=== PATIENT | female | born 1985 | race African-American/Black ===

== ENCOUNTER 2019-01-26 18:19 | Inpatient (IN) ==
[2019-01-26 18:58] LABS: Basophils % 0.2 % (0.0-0.8); Eosinophils # 0.1 10*3/uL (0.0-0.87); Eosinophils % 0.7 % (0.00-10.9); Hematocrit 31.8 VOL% (35.7-47.0); Hemoglobin 10.1 GM/DL (12.0-16.0); Immature Granulocytes % 0.5 %; Immature Granulocytes Absolute 0.05 #; Lymphocytes # 1.5 10*3/uL (1.4-4.0); Lymphocytes % 14.3 % (21.3-54.2); Mean Corpuscular HGB Conc 31.8 GM/DL (32-36); Mean Corpuscular Volume 81.3 FL (87-102); Mean Platelet Volume 12.1 FL (9.6-12.0); Monocytes % 11.4 % (1.7-12.7); Neutrophils % 72.9 % (38.7-73.9); Platelet Count 248 T/CUMM (130-400); Red Blood Count 3.91 MC/CUMM (3.8-5.5); Red Cell Distribution Width 13.2 % (9.3-17.3); White Blood Count 10.4 T/CUMM (4-12)
[2019-01-26 19:15] LABS: Albumin 3.9 G/DL (3.4-5.0); Bilirubin,Total 0.6 MG/DL (0.2-1.0); Calcium 9.5 MG/DL (8.5-10.1); Osmolality,Calculated 283.8 MOS/KG (273-304); Total Protein 9.4 G/DL (6.4-8.3)
[2019-01-26] MEDS ORDERED: MORPHINE 4 MG/1 ML VIAL IM STA (19:26)
[2019-01-26] MEDS ORDERED: cefTRIAXone 1,000 MG in SODIUM CHLORIDE 0.9% 100 ML IV STA (19:41)
[2019-01-26] MEDS ORDERED: CIPROFLOXACIN/DEXAMETHASONE OTIC SUSP 7.5 ML BOTTLE BOTH EARS STA (19:41)
[2019-01-26] MEDS ORDERED: MUPIROCIN 2% OINT 22 GM TUBE TOP STA (19:52)
[2019-01-26] MEDS ORDERED: CIPROFLOXACIN INJ 400 MG in PREMIX 1 EACH IV STA (19:52)
[2019-01-26] MEDS ORDERED: HYDROmorphone 2 MG/1 ML VIAL IV STA (20:01)
[2019-01-26] MEDS ORDERED: SODIUM CHLORIDE 0.9% 1,000 ML IV STA (20:02)
[2019-01-26] MEDS ORDERED: GLUCAGON 1 MG VIAL IM PRN (20:28)
[2019-01-26] MEDS ORDERED: DEXTROSE 50% 25 GM/50 ML VIAL IV PRN (20:28)
[2019-01-26] MEDS ORDERED: ACETAMINOPHEN 500 MG TABLET PO PRN (20:28)
[2019-01-26] MEDS ORDERED: ONDANSETRON 4 MG/2 ML VIAL IV PRN (20:28)
[2019-01-26] MEDS ORDERED: HYDROmorphone 2 MG/1 ML VIAL IV SCH (20:30)
[2019-01-26] MEDS ORDERED: LACTATED RINGERS 1,000 ML IV SCH (20:30)
[2019-01-26] MEDS ORDERED: INSULIN LISPRO 100 UNIT/ML SUBCUT SCH (21:00)
[2019-01-27] MEDS: hydrALAZINE 20 MG/1 ML VIAL IV PRN ×2 (00:17→13:44)
[2019-01-27] MEDS ORDERED: HYDROmorphone 2 MG/1 ML VIAL IV ONE (03:16)
[2019-01-27 05:27] LABS: Basophils % 0.1 % (0.0-0.8); Eosinophils % 0.4 % (0.00-10.9); Hematocrit 28.3 VOL% (35.7-47.0); Hemoglobin 9.2 GM/DL (12.0-16.0); Immature Granulocytes % 0.4 %; Immature Granulocytes Absolute 0.04 #; Lymphocytes # 1.1 10*3/uL (1.4-4.0); Mean Corpuscular HGB Conc 32.5 GM/DL (32-36); Mean Corpuscular Volume 81.1 FL (87-102); Mean Platelet Volume 12.5 FL (9.6-12.0); Monocytes % 11.3 % (1.7-12.7); Neutrophils % 76.8 % (38.7-73.9); Platelet Count 238 T/CUMM (130-400); Red Blood Count 3.49 MC/CUMM (3.8-5.5); Red Cell Distribution Width 13.1 % (9.3-17.3); White Blood Count 10.4 T/CUMM (4-12)
[2019-01-27] MEDS: CIPROFLOXACIN INJ 400 MG in PREMIX 1 EACH IV SCH ×2 (09:04→20:56)
[2019-01-27] MEDS: CIPROFLOXACIN/DEXAMETHASONE OTIC SUSP 7.5 ML BOTTLE BOTH EARS SCH ×2 (09:07→20:55)
[2019-01-27] MEDS: MUPIROCIN 2% OINT 22 GM TUBE TOP SCH ×2 (09:08→20:54)
[2019-01-27] MEDS: MORPHINE 4 MG/1 ML VIAL IV PRN ×3 (10:22→17:58)
[2019-01-27] MEDS ORDERED: CIPROFLOXACIN/DEXAMETHASONE OTIC SUSP 7.5 ML BOTTLE ONE (11:46)
[2019-01-27] MEDS ORDERED: DEXTROSE 50% 25 GM/50 ML VIAL IV PRN (11:56)
[2019-01-27] MEDS ORDERED: GLUCAGON 1 MG VIAL IM PRN (11:56)
[2019-01-27] MEDS ORDERED: PROPOFOL 200 MG/20 ML VIAL IV ONE (13:26)
[2019-01-27] MEDS ORDERED: fentaNYL 100 MCG/2 ML VIAL ONE (13:26)
[2019-01-27] MEDS ORDERED: ONDANSETRON 4 MG/2 ML VIAL ONE (13:26)
[2019-01-27] MEDS ORDERED: MIDAZOLAM 2 MG/2 ML VIAL ONE (13:26)
[2019-01-27] MEDS ORDERED: SEVOFLURANE 1 UNIT/15 MINUTE INH ONE (13:26)
[2019-01-27] MEDS ORDERED: INSULIN LISPRO 100 UNIT/ML SUBCUT SCH (14:00)
[2019-01-27] MEDS: INSULIN LISPRO 100 UNIT/ML SUBCUT SCH (20:53)
[2019-01-28] MEDS: INSULIN LISPRO 100 UNIT/ML SUBCUT SCH ×3 (00:23→09:20)
[2019-01-28 08:20] VITALS: BP 117/82
[2019-01-28] MEDS: CIPROFLOXACIN/DEXAMETHASONE OTIC SUSP 7.5 ML BOTTLE BOTH EARS SCH (09:20)
[2019-01-28] MEDS: MUPIROCIN 2% OINT 22 GM TUBE TOP SCH (09:20)
[2019-01-28] MEDS: CIPROFLOXACIN INJ 400 MG in PREMIX 1 EACH IV SCH (09:21)
== END 2019-01-28 11:47 | disposition home or self-care (01) | DRG 156 ==
LOC: N.ED 18:19 → N.EDINP 20:27 → N.4E 21:19
PROVIDERS: ADMIT Otolaryngology; ATTEND Otolaryngology

== ENCOUNTER 2020-01-31 13:55 | Inpatient (IN) ==
[2020-01-31 17:38] LABS: Basophils % 0.2 % (0.0-0.8); Eosinophils # 0.1 10*3/uL (0.0-0.87); Eosinophils % 0.7 % (0.00-10.9); Hematocrit 27.6 VOL% (35.7-47.0); Hemoglobin 8.3 GM/DL (12.0-16.0); Immature Granulocytes Absolute 0.13 #; Lymphocytes # 1.9 10*3/uL (1.4-4.0); Lymphocytes % 13.8 % (21.3-54.2); Mean Corpuscular HGB Conc 30.1 GM/DL (32-36); Mean Corpuscular Volume 87.3 FL (87-102); Mean Platelet Volume 10.1 FL (9.6-12.0); Monocytes % 8.4 % (1.7-12.7); Neutrophils % 75.9 % (38.7-73.9); Platelet Count 480 T/CUMM (130-400); Red Blood Count 3.16 MC/CUMM (3.8-5.5); Red Cell Distribution Width 12.5 % (9.3-17.3); White Blood Count 13.4 T/CUMM (4-12)
[2020-01-31] MEDS ORDERED: CLINDAMYCIN INJ 600 MG in PREMIX 1 EACH IV STA (17:54)
[2020-01-31 18:00] LABS: Albumin 3.4 G/DL (3.4-5.0); Bilirubin,Total 0.4 MG/DL (0.2-1.0); Calcium 9.8 MG/DL (8.5-10.1); Osmolality,Calculated 269.7 MOS/KG (273-304); Total Protein 10.8 G/DL (6.4-8.3)
[2020-01-31] MEDS ORDERED: INSULIN REGULAR 100 UNIT/ML IV STA (18:20)
[2020-01-31] MEDS ORDERED: DEXTROSE 50% 25 GM/50 ML VIAL IV STA (18:20)
[2020-01-31] MEDS ORDERED: DEXTROSE 50% 25 GM/50 ML SYRINGE IV ONE (18:34)
[2020-01-31] MEDS ORDERED: ONDANSETRON 4 MG/2 ML VIAL IV PRN (19:59)
[2020-01-31] MEDS ORDERED: ZALEPLON 5 MG CAPSULE PO PRN (19:59)
[2020-01-31] MEDS ORDERED: ACETAMINOPHEN 325 MG TABLET PO PRN (19:59)
[2020-01-31] MEDS ORDERED: traMADol 50 MG TABLET PO PRN (19:59)
[2020-01-31] MEDS ORDERED: DEXTROSE 50% 25 GM/50 ML VIAL IV PRN ×2 (19:59→20:02)
[2020-01-31] MEDS ORDERED: GLUCAGON 1 MG VIAL IM PRN ×2 (19:59→20:02)
[2020-01-31] MEDS ORDERED: DOCUSATE SODIUM 100 MG CAPSULE PO PRN (19:59)
[2020-01-31] MEDS ORDERED: SODIUM POLYSTYRENE SULFATE 15 GM/60 ML BOTTLE PO ONE (20:00)
[2020-01-31] MEDS ORDERED: ENOXAPARIN 30 MG/0.3 ML SYRINGE SUBCUT SCH (21:00)
[2020-01-31] MEDS ORDERED: SODIUM ZIRCONIUM CYCLOSILICATE 10 GM PACK PO SCH (21:00)
[2020-01-31] MEDS: hydrALAZINE 10 MG TABLET PO SCH (21:22)
[2020-01-31] MEDS ORDERED: CALCIUM GLUCONATE 2,000 MG in SODIUM CHLORIDE 0.9% 100 ML IV ONE (21:30)
[2020-01-31] MEDS: PIPERACILLIN/TAZOBACTAM 3,375 MG in SODIUM CHLORIDE 0.9% 100 ML IV SCH (21:32)
[2020-01-31] MEDS: SODIUM BICARB INJ 50 MEQ in DEXTROSE 5% NACL 0.45% 1,000 ML IV SCH (21:32)
[2020-01-31] MEDS: INSULIN REGULAR 100 UNIT/ML SUBCUT SCH (21:34)
[2020-02-01] MEDS: CLINDAMYCIN INJ 600 MG in PREMIX 1 EACH IV SCH ×2 (01:56→11:38)
[2020-02-01 04:08] LABS: Basophils % 0.3 % (0.0-0.8); Eosinophils # 0.1 10*3/uL (0.0-0.87); Eosinophils % 0.9 % (0.00-10.9); Hematocrit 23.1 VOL% (35.7-47.0); Immature Granulocytes % 1.1 %; Immature Granulocytes Absolute 0.13 #; Lymphocytes # 2.1 10*3/uL (1.4-4.0); Lymphocytes % 17.6 % (21.3-54.2); Mean Corpuscular HGB Conc 30.3 GM/DL (32-36); Mean Corpuscular Volume 85.6 FL (87-102); Mean Platelet Volume 10.2 FL (9.6-12.0); Monocytes % 9.8 % (1.7-12.7); Neutrophils % 70.3 % (38.7-73.9); Platelet Count 424 T/CUMM (130-400); Red Cell Distribution Width 12.7 % (9.3-17.3)
[2020-02-01 05:15] LABS: Calcium 9.2 MG/DL (8.5-10.1); Osmolality,Calculated 271.7 MOS/KG (273-304); Risk Ratio 6.96; Thyroid Stimulating Hormone 3.05 uIU/ml (0.358-3.74)
[2020-02-01 05:18] LABS: % Iron Saturation 14.7 % (18-50); Ferritin 376.4 ng/ml (8-252)
[2020-02-01 05:19] LABS: Parathyroid Hormone Intact 265.3 PG/ML (18.4-80.1)
[2020-02-01 05:19] LABS: Sedimentation Rate-Westergren 130 MM/HR (0-20)
[2020-02-01 05:34] LABS: Folate 11.3 NG/ML (5.4-24.0); Vitamin B12 734 PG/ML (211-911)
[2020-02-01] MEDS: PIPERACILLIN/TAZOBACTAM 3,375 MG in SODIUM CHLORIDE 0.9% 100 ML IV SCH ×3 (05:34→22:23)
[2020-02-01 06:29] LABS: Hepatitis B Core IgM Quant 0.13 Index; Hepatitis B Surface Ag Quant < 0.10 Index; Hepatitis B Surface Ag Result Negative (Negative); Hepatitis C Virus Ab Quant 0.07 Index; Hepatitis C Virus Ab Result Negative (Negative)
[2020-02-01] MEDS ORDERED: SODIUM POLYSTYRENE SULFATE 15 GM/60 ML BOTTLE PO ONE (07:50)
[2020-02-01] MEDS ORDERED: CALCIUM GLUCONATE 2,000 MG in SODIUM CHLORIDE 0.9% 100 ML IV ONE (07:50)
[2020-02-01 09:07] LABS: Immunoglobulin A (Chem) 526 MG/DL (70-400); Immunoglobulin G (Chem) 1810 MG/DL (700-1600); Immunoglobulin M (Chem) 40 MG/DL (40-230)
[2020-02-01 09:39] LABS: Total Protein (Chem) 9.3 G/DL (6.4-8.3)
[2020-02-01] MEDS: hydrALAZINE 10 MG TABLET PO SCH ×2 (09:59→22:23)
[2020-02-01] MEDS: FLUCONAZOLE 100 MG TABLET PO SCH (09:59)
[2020-02-01] MEDS: INSULIN NPH/REGULAR 70/30 100 UNIT/ML SUBCUT SCH ×2 (10:00→17:18)
[2020-02-01] MEDS: INSULIN REGULAR 100 UNIT/ML SUBCUT SCH ×4 (10:05→22:30)
[2020-02-01] MEDS ORDERED: SODIUM CHLORIDE 0.9% 1,000 ML IV PRN (10:57)
[2020-02-01] MEDS: SODIUM BICARB INJ 50 MEQ in DEXTROSE 5% NACL 0.45% 1,000 ML IV SCH (12:17)
[2020-02-01 13:19] LABS: Hemoglobin A1 (Alkaline) 97.6 % (96.5-98.5); Hemoglobin A2 (Alkaline) 2.4 % (1.5-3.5)
[2020-02-01 14:01] LABS: Albumin (SPE) 4.3 G/DL (3.2-5.3); Albumin (SPE) Rel % 45.7 %; Alpha 1 (SPE) 0.3 G/DL (0.1-0.4); Alpha 1 (SPE) Rel % 3.5 %; Alpha 2 (SPE) 1.6 G/DL (0.4-1.0); Beta (SPE) 1.3 G/DL (0.5-1.1); Beta (SPE) Rel % 13.9 %; Gamma (SPE) 1.9 G/DL (0.7-1.7); Gamma (SPE) Rel % 19.9 %
[2020-02-01] MEDS ORDERED: ERGOCALCIFEROL 50,000 UNIT CAPSULE PO SCH (15:00)
[2020-02-01] MEDS: SODIUM BICARB INJ 150 MEQ in DEXTROSE 5% NACL 0.45% 1,000 ML IV SCH ×2 (17:03→23:09)
[2020-02-01] MEDS: FLUDROCORTISONE 0.1 MG TABLET PO SCH (22:30)
[2020-02-01 23:11] LABS: Hematocrit 29.8 VOL% (35.7-47.0); Hemoglobin 9.3 GM/DL (12.0-16.0)
[2020-02-02 05:40] LABS: Basophils % 0.2 % (0.0-0.8); Eosinophils # 0.1 10*3/uL (0.0-0.87); Eosinophils % 0.8 % (0.00-10.9); Hematocrit 29.3 VOL% (35.7-47.0); Hemoglobin 9.2 GM/DL (12.0-16.0); Immature Granulocytes % 0.9 %; Immature Granulocytes Absolute 0.09 #; Lymphocytes # 1.6 10*3/uL (1.4-4.0); Lymphocytes % 16.5 % (21.3-54.2); Mean Corpuscular HGB Conc 31.4 GM/DL (32-36); Mean Corpuscular Volume 85.2 FL (87-102); Mean Platelet Volume 10.1 FL (9.6-12.0); Monocytes % 9.4 % (1.7-12.7); Neutrophils % 72.2 % (38.7-73.9); Platelet Count 374 T/CUMM (130-400); Red Blood Count 3.44 MC/CUMM (3.8-5.5); Red Cell Distribution Width 12.8 % (9.3-17.3); White Blood Count 9.8 T/CUMM (4-12)
[2020-02-02] MEDS: PIPERACILLIN/TAZOBACTAM 3,375 MG in SODIUM CHLORIDE 0.9% 100 ML IV SCH ×3 (05:41→20:52)
[2020-02-02 06:16] LABS: Albumin 2.9 G/DL (3.4-5.0); Bilirubin,Total 0.7 MG/DL (0.2-1.0); Calcium 9.4 MG/DL (8.5-10.1); Osmolality,Calculated 278.1 MOS/KG (273-304); Total Protein 9.4 G/DL (6.4-8.3)
[2020-02-02] MEDS ORDERED: LIDOCAINE 1% 20 ML VIAL ONE (08:09)
[2020-02-02] MEDS ORDERED: LIDOCAINE 2% 5 ML VIAL ONE (09:20)
[2020-02-02] MEDS ORDERED: propofoL 200 MG/20 ML VIAL IV ONE (09:20)
[2020-02-02] MEDS ORDERED: SEVOFLURANE 1 UNIT/15 MINUTE INH ONE (09:20)
[2020-02-02] MEDS ORDERED: MIDAZOLAM 2 MG/2 ML VIAL ONE (09:21)
[2020-02-02] MEDS ORDERED: fentaNYL 100 MCG/2 ML VIAL ONE (09:21)
[2020-02-02] MEDS ORDERED: ONDANSETRON 4 MG/2 ML VIAL ONE (09:21)
[2020-02-02] MEDS ORDERED: PHENYLEPHRINE 1 MG/10 ML SYRINGE IV ONE (09:22)
[2020-02-02] MEDS: INSULIN REGULAR 100 UNIT/ML SUBCUT SCH ×4 (10:14→20:53)
[2020-02-02] MEDS: CLINDAMYCIN INJ 600 MG in PREMIX 1 EACH IV SCH ×3 (10:16→17:38)
[2020-02-02] MEDS: INSULIN NPH/REGULAR 70/30 100 UNIT/ML SUBCUT SCH ×2 (10:44→16:40)
[2020-02-02] MEDS: FLUCONAZOLE 100 MG TABLET PO SCH (10:45)
[2020-02-02] MEDS: FLUDROCORTISONE 0.1 MG TABLET PO SCH ×2 (10:45→20:51)
[2020-02-02] MEDS: hydrALAZINE 10 MG TABLET PO SCH ×2 (10:46→20:51)
[2020-02-02] MEDS: IRON SUCROSE 200 MG in SODIUM CHLORIDE 0.9% 100 ML IV SCH (10:46)
[2020-02-02] MEDS: SODIUM CHLORIDE 0.45% 1,000 ML IV SCH (15:04)
[2020-02-02] MEDS: SODIUM BICARB INJ 150 MEQ in DEXTROSE 5% NACL 0.45% 1,000 ML IV SCH (15:11)
[2020-02-02] MEDS: LABETALOL 100 MG TABLET PO SCH (20:51)
[2020-02-02 21:56] LABS: Soluble Transf Receptor (sTfR) 3.2 mg/L (1.8 - 4.6)
[2020-02-03] MEDS: CLINDAMYCIN INJ 600 MG in PREMIX 1 EACH IV SCH ×3 (02:55→18:13)
[2020-02-03] MEDS: SODIUM CHLORIDE 0.45% 1,000 ML IV SCH ×2 (05:17→14:00)
[2020-02-03 05:34] LABS: Basophils % 0.2 % (0.0-0.8); Eosinophils # 0.1 10*3/uL (0.0-0.87); Eosinophils % 0.7 % (0.00-10.9); Hematocrit 28.9 VOL% (35.7-47.0); Immature Granulocytes % 0.5 %; Immature Granulocytes Absolute 0.04 #; Lymphocytes # 1.6 10*3/uL (1.4-4.0); Lymphocytes % 18.6 % (21.3-54.2); Mean Corpuscular HGB Conc 31.1 GM/DL (32-36); Mean Corpuscular Volume 85.3 FL (87-102); Mean Platelet Volume 10.2 FL (9.6-12.0); Monocytes % 11.5 % (1.7-12.7); Neutrophils % 68.5 % (38.7-73.9); Platelet Count 346 T/CUMM (130-400); Red Blood Count 3.39 MC/CUMM (3.8-5.5); Red Cell Distribution Width 12.8 % (9.3-17.3); White Blood Count 8.5 T/CUMM (4-12)
[2020-02-03 05:56] LABS: Calcium 9.1 MG/DL (8.5-10.1); Osmolality,Calculated 278.2 MOS/KG (273-304)
[2020-02-03] MEDS: PIPERACILLIN/TAZOBACTAM 3,375 MG in SODIUM CHLORIDE 0.9% 100 ML IV SCH ×3 (05:58→20:39)
[2020-02-03] MEDS: hydrALAZINE 10 MG TABLET PO SCH ×2 (09:19→20:40)
[2020-02-03] MEDS: FLUCONAZOLE 100 MG TABLET PO SCH (09:19)
[2020-02-03] MEDS: FLUDROCORTISONE 0.1 MG TABLET PO SCH ×2 (09:19→20:40)
[2020-02-03] MEDS: LABETALOL 100 MG TABLET PO SCH ×2 (09:19→20:40)
[2020-02-03] MEDS: INSULIN REGULAR 100 UNIT/ML SUBCUT SCH ×4 (09:20→20:45)
[2020-02-03] MEDS: INSULIN NPH/REGULAR 70/30 100 UNIT/ML SUBCUT SCH ×2 (09:20→17:37)
[2020-02-03] MEDS: IRON SUCROSE 200 MG in SODIUM CHLORIDE 0.9% 100 ML IV SCH ×3 (09:21→11:48)
[2020-02-03 10:46] LABS: Procalcitonin, S 0.2 ng/mL (<=0.15)
[2020-02-03 12:13] LABS: Albumin 2.9 G/DL (3.4-5.0); Bilirubin,Direct 0.12 MG/DL (0.0-0.20); Bilirubin,Indirect 0.6 MG/DL (0.0-1.0); Bilirubin,Total 0.7 MG/DL (0.2-1.0); Total Protein 9.5 G/DL (6.4-8.3)
[2020-02-03] MEDS: SODIUM HYPOCHLORITE 0.25% IRRIG 473 ML BOTTLE TOP SCH (13:04)
[2020-02-04] MEDS: CLINDAMYCIN INJ 600 MG in PREMIX 1 EACH IV SCH ×2 (03:26→13:01)
[2020-02-04] MEDS: PIPERACILLIN/TAZOBACTAM 3,375 MG in SODIUM CHLORIDE 0.9% 100 ML IV SCH (05:37)
[2020-02-04 06:04] LABS: Basophils % 0.3 % (0.0-0.8); Eosinophils # 0.1 10*3/uL (0.0-0.87); Eosinophils % 0.9 % (0.00-10.9); Hematocrit 29.8 VOL% (35.7-47.0); Immature Granulocytes % 0.5 %; Immature Granulocytes Absolute 0.04 #; Lymphocytes % 26.2 % (21.3-54.2); Mean Corpuscular HGB Conc 30.2 GM/DL (32-36); Mean Corpuscular Volume 88.4 FL (87-102); Mean Platelet Volume 10.4 FL (9.6-12.0); Monocytes % 11.5 % (1.7-12.7); Neutrophils % 60.6 % (38.7-73.9); Platelet Count 350 T/CUMM (130-400); Red Blood Count 3.37 MC/CUMM (3.8-5.5); Red Cell Distribution Width 12.6 % (9.3-17.3); White Blood Count 7.7 T/CUMM (4-12)
[2020-02-04] MEDS: SODIUM CHLORIDE 0.45% 1,000 ML IV SCH (06:07)
[2020-02-04 06:32] LABS: Calcium 9.6 MG/DL (8.5-10.1)
[2020-02-04 07:41] VITALS: BP 130/69
[2020-02-04] MEDS: INSULIN REGULAR 100 UNIT/ML SUBCUT SCH ×2 (08:13→13:01)
[2020-02-04] MEDS: LABETALOL 100 MG TABLET PO SCH (09:05)
[2020-02-04] MEDS: FLUCONAZOLE 100 MG TABLET PO SCH (09:05)
[2020-02-04] MEDS: hydrALAZINE 10 MG TABLET PO SCH (09:06)
[2020-02-04] MEDS: FLUDROCORTISONE 0.1 MG TABLET PO SCH (09:06)
[2020-02-04] MEDS: SODIUM HYPOCHLORITE 0.25% IRRIG 473 ML BOTTLE TOP SCH (09:07)
[2020-02-04] MEDS: INSULIN NPH/REGULAR 70/30 100 UNIT/ML SUBCUT SCH (09:18)
[2020-02-04] MEDS: IRON SUCROSE 200 MG in SODIUM CHLORIDE 0.9% 100 ML IV SCH (11:07)
[2020-02-04] MEDS ORDERED: FERROUS SULFATE 325 MG TABLET PO SCH (21:00)
== END 2020-02-04 13:05 | disposition home health service (06) | DRG 623 ==
LOC: N.ED 13:55 → N.EDINP 18:59 → SUATTDRO 18:59 → N.TELES 19:19
PROVIDERS: ADMIT Internal Medicine; ATTEND Internal Medicine

== ENCOUNTER 2020-06-07 09:43 | Inpatient (IN) ==
[2020-06-07] MEDS ORDERED: ONDANSETRON 4 MG/2 ML VIAL IV ONE (10:18)
[2020-06-07] MEDS ORDERED: SODIUM CHLORIDE 0.9% 1,000 ML IV STA (10:18)
[2020-06-07 10:37] LABS: Basophils % 0.1 % (0.0-0.8); Eosinophils # 0.1 10*3/uL (0.0-0.87); Eosinophils % 0.4 % (0.00-10.9); Hematocrit 21.5 VOL% (35.7-47.0); Hemoglobin 6.7 GM/DL (12.0-16.0); Immature Granulocytes % 1.2 %; Immature Granulocytes Absolute 0.19 #; Lymphocytes # 1.6 10*3/uL (1.4-4.0); Lymphocytes % 10.3 % (21.3-54.2); Mean Corpuscular HGB Conc 31.2 GM/DL (32-36); Mean Corpuscular Volume 86.3 FL (87-102); Mean Platelet Volume 10.3 FL (9.6-12.0); Monocytes % 9.6 % (1.7-12.7); Neutrophils % 78.4 % (38.7-73.9); Platelet Count 418 T/CUMM (130-400); Red Blood Count 2.49 MC/CUMM (3.8-5.5); Red Cell Distribution Width 12.9 % (9.3-17.3); White Blood Count 15.9 T/CUMM (4-12)
[2020-06-07] MEDS ORDERED: SODIUM CHLORIDE 0.9% 1,000 ML IV PRN (11:02)
[2020-06-07 11:10] LABS: Albumin 2.8 G/DL (3.4-5.0); Bilirubin,Total 0.6 MG/DL (0.2-1.0); Calcium 9.7 MG/DL (8.5-10.1); Osmolality,Calculated 269.4 MOS/KG (273-304); Total Protein 9.8 G/DL (6.4-8.3)
[2020-06-07] MEDS ORDERED: ACETAMINOPHEN 500 MG TABLET ONE (12:13)
[2020-06-07] MEDS ORDERED: ACETAMINOPHEN 500 MG TABLET PO STA (12:17)
[2020-06-07 12:46] LABS: Bilirubin,Urine Negative (Negative); Blood, Urine Moderate mg/dL (Negative); Glucose,Urine (UA) Negative (Negative); Hyaline Casts,Urine 2 /LPF (0-3); Ketones,Urine Negative (Negative); Mucus,Urine Occasional /LPF (Occasional); Nitrite,Urine Negative (Negative); Protein,Urine 100 MG/DL; Squamous Epithelial Cell,Urine Occasional /HPF (0-10); Urine Appearance Slightly Hazy (Clear); Urine Color Yellow (Yellow); Urine Specific Gravity 1.012 (1.001-1.035); Urine Urobilinogen < 2.0 EU/DL (0.2-1.0); WBC,Urine 1 /HPF (0-6)
[2020-06-07] MEDS ORDERED: PROMETHAZINE 25 MG/1 ML VIAL IM STA (12:58)
[2020-06-07] MEDS ORDERED: PROMETHAZINE 25 MG/1 ML VIAL ONE (12:59)
[2020-06-07] MEDS ORDERED: GLUCAGON 1 MG VIAL IM PRN ×2 (13:36)
[2020-06-07] MEDS ORDERED: ONDANSETRON 4 MG/2 ML VIAL IV PRN (13:36)
[2020-06-07] MEDS ORDERED: DEXTROSE 50% 25 GM/50 ML VIAL IV PRN ×2 (13:36)
[2020-06-07] MEDS ORDERED: VANCOMYCIN INJ 1,000 MG in SODIUM CHLORIDE 0.9% 250 ML IV STA (13:38)
[2020-06-07] MEDS ORDERED: SODIUM CHLORIDE 0.9% 1,000 ML IV SCH (14:00)
[2020-06-07] MEDS ORDERED: ONDANSETRON ODT 4 MG TABLET PO PRN (16:28)
[2020-06-07] MEDS ORDERED: VANCOMYCIN INJ 1,000 MG in SODIUM CHLORIDE 0.9% 250 ML IV ONE (17:00)
[2020-06-07] MEDS: ACETAMINOPHEN 325 MG TABLET PO PRN (18:55)
[2020-06-07] MEDS: FERROUS SULFATE 325 MG TABLET PO SCH (20:47)
[2020-06-07] MEDS: hydrALAZINE 10 MG TABLET PO SCH (20:47)
[2020-06-07] MEDS: prednisoLONE ACETATE 1% OPH SUSP 5 ML BOTTLE LEFT EYE SCH (20:48)
[2020-06-07] MEDS: PROMETHAZINE 25 MG/1 ML VIAL IM PRN (20:48)
[2020-06-07] MEDS: TIMOLOL 0.5% OPH SOLN 5 ML BOTTLE LEFT EYE SCH (20:48)
[2020-06-07] MEDS: BRIMONIDINE 0.2% OPH SOLN 5 ML BOTTLE LEFT EYE SCH (20:49)
[2020-06-08] MEDS: ACETAMINOPHEN 325 MG TABLET PO PRN ×2 (04:52→18:08)
[2020-06-08 06:21] LABS: Basophils % 0.1 % (0.0-0.8); Eosinophils % 0.3 % (0.00-10.9); Hematocrit 24.7 VOL% (35.7-47.0); Hemoglobin 7.7 GM/DL (12.0-16.0); Immature Granulocytes % 1.3 %; Immature Granulocytes Absolute 0.19 #; Lymphocytes # 1.2 10*3/uL (1.4-4.0); Mean Corpuscular HGB Conc 31.2 GM/DL (32-36); Mean Corpuscular Volume 88.2 FL (87-102); Mean Platelet Volume 10.1 FL (9.6-12.0); Monocytes % 9.1 % (1.7-12.7); Neutrophils % 81.2 % (38.7-73.9); Platelet Count 380 T/CUMM (130-400); Red Cell Distribution Width 13.1 % (9.3-17.3); White Blood Count 14.8 T/CUMM (4-12)
[2020-06-08 06:44] LABS: Albumin 2.4 G/DL (3.4-5.0); Bilirubin,Direct 0.65 MG/DL (0.0-0.20); Bilirubin,Indirect 1.3 MG/DL (0.0-1.0); Bilirubin,Total 1.9 MG/DL (0.2-1.0)
[2020-06-08 06:49] LABS: Calcium 9.4 MG/DL (8.5-10.1); Osmolality,Calculated 270.2 MOS/KG (273-304)
[2020-06-08] MEDS ORDERED: SODIUM POLYSTYRENE SULFATE 15 GM/60 ML BOTTLE PO ONE (08:15)
[2020-06-08] MEDS: MULTIVITAMIN (CENTRUM) TABLET PO SCH (08:33)
[2020-06-08] MEDS: hydrALAZINE 10 MG TABLET PO SCH ×2 (08:33→20:15)
[2020-06-08] MEDS: FERROUS SULFATE 325 MG TABLET PO SCH ×2 (08:33→20:15)
[2020-06-08] MEDS: TIMOLOL 0.5% OPH SOLN 5 ML BOTTLE LEFT EYE SCH ×2 (10:13→20:15)
[2020-06-08] MEDS: BRIMONIDINE 0.2% OPH SOLN 5 ML BOTTLE LEFT EYE SCH ×2 (10:13→20:15)
[2020-06-08] MEDS: prednisoLONE ACETATE 1% OPH SUSP 5 ML BOTTLE LEFT EYE SCH ×2 (10:13→20:15)
[2020-06-08] MEDS: CEFEPIME 1,000 MG in SODIUM CHLORIDE 0.9% 100 ML IV SCH ×2 (11:03→21:12)
[2020-06-08] MEDS ORDERED: SODIUM CHLORIDE 0.9% 1,000 ML IV PRN (14:07)
[2020-06-08] MEDS: VANCOMYCIN INJ 1,500 MG in SODIUM CHLORIDE 0.9% 500 ML IV SCH (14:50)
[2020-06-08] MEDS: PROMETHAZINE 25 MG/1 ML VIAL IM PRN (14:55)
[2020-06-08] MEDS: GENTAMICIN 0.1% CREAM 15 GM TUBE TOP SCH (16:16)
[2020-06-08] MEDS ORDERED: PROMETHAZINE 25 MG/1 ML VIAL IM ONE (18:46)
[2020-06-08 22:21] LABS: Hematocrit 26.6 VOL% (35.7-47.0); Hemoglobin 8.6 GM/DL (12.0-16.0)
[2020-06-09] MEDS: CEFEPIME 1,000 MG in SODIUM CHLORIDE 0.9% 100 ML IV SCH ×3 (04:23→20:26)
[2020-06-09 06:47] LABS: Basophils % 0.2 % (0.0-0.8); Eosinophils % 0.1 % (0.00-10.9); Hematocrit 26.9 VOL% (35.7-47.0); Hemoglobin 8.6 GM/DL (12.0-16.0); Immature Granulocytes % 1.9 %; Immature Granulocytes Absolute 0.35 #; Lymphocytes # 1.4 10*3/uL (1.4-4.0); Lymphocytes % 7.4 % (21.3-54.2); Mean Corpuscular Volume 87.1 FL (87-102); Mean Platelet Volume 9.9 FL (9.6-12.0); Monocytes % 6.9 % (1.7-12.7); Neutrophils % 83.5 % (38.7-73.9); Platelet Count 388 T/CUMM (130-400); Red Blood Count 3.09 MC/CUMM (3.8-5.5); White Blood Count 18.3 T/CUMM (4-12)
[2020-06-09 07:05] LABS: Albumin 2.3 G/DL (3.4-5.0); Bilirubin,Direct 0.85 MG/DL (0.0-0.20); Bilirubin,Indirect 1.2 MG/DL (0.0-1.0)
[2020-06-09 07:14] LABS: Calcium 9.2 MG/DL (8.5-10.1); Osmolality,Calculated 268.4 MOS/KG (273-304)
[2020-06-09] MEDS: PROMETHAZINE 25 MG/1 ML VIAL IM PRN ×3 (08:39→22:15)
[2020-06-09] MEDS ORDERED: LIDOCAINE 1% 20 ML VIAL ONE (08:49)
[2020-06-09] MEDS ORDERED: propofoL 200 MG/20 ML VIAL IV ONE (08:51)
[2020-06-09] MEDS ORDERED: MIDAZOLAM 2 MG/2 ML VIAL ONE (08:51)
[2020-06-09] MEDS ORDERED: fentaNYL 100 MCG/2 ML VIAL ONE (08:51)
[2020-06-09] MEDS ORDERED: SODIUM CHLORIDE 0.9% 100 ML IV ONE (08:51)
[2020-06-09] MEDS ORDERED: ETOMIDATE 40 MG/20 ML VIAL IV ONE (08:56)
[2020-06-09] MEDS: MULTIVITAMIN (CENTRUM) TABLET PO SCH (09:00)
[2020-06-09] MEDS: hydrALAZINE 10 MG TABLET PO SCH ×2 (09:00→20:29)
[2020-06-09] MEDS: GENTAMICIN 0.1% CREAM 15 GM TUBE TOP SCH (09:00)
[2020-06-09] MEDS: BRIMONIDINE 0.2% OPH SOLN 5 ML BOTTLE LEFT EYE SCH ×2 (09:00→20:29)
[2020-06-09] MEDS: prednisoLONE ACETATE 1% OPH SUSP 5 ML BOTTLE LEFT EYE SCH ×2 (09:00→20:28)
[2020-06-09] MEDS: FERROUS SULFATE 325 MG TABLET PO SCH ×2 (09:00→20:29)
[2020-06-09] MEDS: TIMOLOL 0.5% OPH SOLN 5 ML BOTTLE LEFT EYE SCH ×2 (09:00→20:28)
[2020-06-09] MEDS: VANCOMYCIN INJ 1,500 MG in SODIUM CHLORIDE 0.9% 500 ML IV SCH (15:20)
[2020-06-10] MEDS: CEFEPIME 1,000 MG in SODIUM CHLORIDE 0.9% 100 ML IV SCH ×3 (03:42→21:20)
[2020-06-10 05:55] LABS: Basophils % 0.2 % (0.0-0.8); Eosinophils # 0.1 10*3/uL (0.0-0.87); Eosinophils % 0.3 % (0.00-10.9); Hematocrit 26.5 VOL% (35.7-47.0); Hemoglobin 8.3 GM/DL (12.0-16.0); Immature Granulocytes Absolute 0.37 #; Lymphocytes # 1.2 10*3/uL (1.4-4.0); Lymphocytes % 6.5 % (21.3-54.2); Mean Corpuscular HGB Conc 31.3 GM/DL (32-36); Mean Corpuscular Volume 87.5 FL (87-102); Monocytes % 7.3 % (1.7-12.7); Neutrophils % 83.7 % (38.7-73.9); Platelet Count 370 T/CUMM (130-400); Red Blood Count 3.03 MC/CUMM (3.8-5.5); Red Cell Distribution Width 13.2 % (9.3-17.3); White Blood Count 18.1 T/CUMM (4-12)
[2020-06-10 06:16] LABS: Calcium 9.2 MG/DL (8.5-10.1); Osmolality,Calculated 267.4 MOS/KG (273-304)
[2020-06-10] MEDS: PROMETHAZINE 25 MG/1 ML VIAL IM PRN ×2 (10:32→21:21)
[2020-06-10] MEDS: GENTAMICIN 0.1% CREAM 15 GM TUBE TOP SCH (10:46)
[2020-06-10] MEDS: MULTIVITAMIN (CENTRUM) TABLET PO SCH (10:46)
[2020-06-10] MEDS: hydrALAZINE 10 MG TABLET PO SCH ×2 (10:46→21:32)
[2020-06-10] MEDS: FERROUS SULFATE 325 MG TABLET PO SCH ×2 (10:46→21:31)
[2020-06-10] MEDS: BRIMONIDINE 0.2% OPH SOLN 5 ML BOTTLE LEFT EYE SCH ×2 (10:47→21:20)
[2020-06-10] MEDS: TIMOLOL 0.5% OPH SOLN 5 ML BOTTLE LEFT EYE SCH ×2 (10:47→21:20)
[2020-06-10] MEDS: prednisoLONE ACETATE 1% OPH SUSP 5 ML BOTTLE LEFT EYE SCH ×2 (10:47→21:20)
[2020-06-10 14:01] LABS: Albumin 2.1 G/DL (3.4-5.0); Bilirubin,Direct 0.87 MG/DL (0.0-0.20); Bilirubin,Indirect 0.4 MG/DL (0.0-1.0); Bilirubin,Total 1.3 MG/DL (0.2-1.0)
[2020-06-10] MEDS: VANCOMYCIN INJ 1,500 MG in SODIUM CHLORIDE 0.9% 500 ML IV SCH (16:04)
[2020-06-10] MEDS: ACETAMINOPHEN 325 MG TABLET PO PRN (21:22)
[2020-06-11] MEDS: VANCOMYCIN INJ 1,500 MG in SODIUM CHLORIDE 0.9% 500 ML IV SCH ×2 (05:45→15:31)
[2020-06-11 05:50] LABS: Basophils # 0.1 10*3/uL (0.0-0.2); Basophils % 0.3 % (0.0-0.8); Eosinophils # 0.1 10*3/uL (0.0-0.87); Eosinophils % 0.3 % (0.00-10.9); Hematocrit 27.9 VOL% (35.7-47.0); Hemoglobin 8.9 GM/DL (12.0-16.0); Immature Granulocytes % 3.9 %; Immature Granulocytes Absolute 0.64 #; Lymphocytes # 1.2 10*3/uL (1.4-4.0); Lymphocytes % 7.2 % (21.3-54.2); Mean Corpuscular HGB Conc 31.9 GM/DL (32-36); Mean Corpuscular Volume 86.4 FL (87-102); Mean Platelet Volume 10.2 FL (9.6-12.0); Monocytes % 7.6 % (1.7-12.7); Neutrophils % 80.7 % (38.7-73.9); Platelet Count 392 T/CUMM (130-400); Red Blood Count 3.23 MC/CUMM (3.8-5.5); Red Cell Distribution Width 12.9 % (9.3-17.3); White Blood Count 16.3 T/CUMM (4-12)
[2020-06-11 06:10] LABS: Calcium 9.4 MG/DL (8.5-10.1); Osmolality,Calculated 270.2 MOS/KG (273-304)
[2020-06-11 06:23] LABS: Albumin 2.2 G/DL (3.4-5.0); Bilirubin,Direct 0.73 MG/DL (0.0-0.20); Bilirubin,Indirect 1.4 MG/DL (0.0-1.0); Bilirubin,Total 2.1 MG/DL (0.2-1.0)
[2020-06-11 06:31] LABS: Band Neutrophils 1 % (0-10); Hypochromasia 1+; Lymphocytes 7 % (20-55); Microcytosis 1+; Platelet Estimate Adequate; Segmented Neutrophils 82 % (50-85); Total Cells Counted 100
[2020-06-11] MEDS: CEFEPIME 1,000 MG in SODIUM CHLORIDE 0.9% 100 ML IV SCH ×2 (09:51→17:49)
[2020-06-11] MEDS: FERROUS SULFATE 325 MG TABLET PO SCH ×2 (09:54→21:19)
[2020-06-11] MEDS: MULTIVITAMIN (CENTRUM) TABLET PO SCH (09:54)
[2020-06-11] MEDS: PROMETHAZINE 25 MG/1 ML VIAL IM PRN ×2 (09:55→17:22)
[2020-06-11] MEDS: hydrALAZINE 10 MG TABLET PO SCH ×2 (09:59→21:19)
[2020-06-11] MEDS: BRIMONIDINE 0.2% OPH SOLN 5 ML BOTTLE LEFT EYE SCH ×2 (10:18→21:19)
[2020-06-11] MEDS: GENTAMICIN 0.1% CREAM 15 GM TUBE TOP SCH (10:18)
[2020-06-11] MEDS: prednisoLONE ACETATE 1% OPH SUSP 5 ML BOTTLE LEFT EYE SCH ×2 (10:18→21:19)
[2020-06-11] MEDS: ONDANSETRON 4 MG/2 ML VIAL IV SCH ×3 (10:19→21:19)
[2020-06-11] MEDS: TIMOLOL 0.5% OPH SOLN 5 ML BOTTLE LEFT EYE SCH ×2 (10:19→21:19)
[2020-06-11] MEDS ORDERED: hydrALAZINE 20 MG/1 ML VIAL IV PRN (12:22)
[2020-06-12] MEDS: CEFEPIME 1,000 MG in SODIUM CHLORIDE 0.9% 100 ML IV SCH ×3 (02:24→19:17)
[2020-06-12] MEDS: VANCOMYCIN INJ 1,500 MG in SODIUM CHLORIDE 0.9% 500 ML IV SCH ×2 (03:55→15:54)
[2020-06-12] MEDS: ONDANSETRON 4 MG/2 ML VIAL IV SCH ×4 (04:40→21:08)
[2020-06-12 05:40] LABS: Basophils # 0.1 10*3/uL (0.0-0.2); Basophils % 0.3 % (0.0-0.8); Eosinophils # 0.1 10*3/uL (0.0-0.87); Eosinophils % 0.5 % (0.00-10.9); Hematocrit 27.5 VOL% (35.7-47.0); Hemoglobin 8.9 GM/DL (12.0-16.0); Immature Granulocytes % 4.4 %; Immature Granulocytes Absolute 0.71 #; Lymphocytes # 1.6 10*3/uL (1.4-4.0); Lymphocytes % 10.1 % (21.3-54.2); Mean Corpuscular HGB Conc 32.4 GM/DL (32-36); Mean Corpuscular Volume 86.8 FL (87-102); Mean Platelet Volume 10.1 FL (9.6-12.0); Neutrophils % 74.7 % (38.7-73.9); Platelet Count 400 T/CUMM (130-400); Red Blood Count 3.17 MC/CUMM (3.8-5.5); White Blood Count 16.1 T/CUMM (4-12)
[2020-06-12 06:05] LABS: Hypochromasia 1+; Microcytosis 1+; Platelet Estimate Adequate
[2020-06-12 06:09] LABS: Albumin 2.2 G/DL (3.4-5.0); Calcium 9.3 MG/DL (8.5-10.1); Osmolality,Calculated 266.4 MOS/KG (273-304); Total Protein 9.1 G/DL (6.4-8.3)
[2020-06-12 06:09] LABS: Albumin 2.2 G/DL (3.4-5.0); Bilirubin,Direct 0.57 MG/DL (0.0-0.20); Bilirubin,Indirect 0.8 MG/DL (0.0-1.0); Bilirubin,Total 1.4 MG/DL (0.2-1.0); Total Protein 9.2 G/DL (6.4-8.3)
[2020-06-12] MEDS: FERROUS SULFATE 325 MG TABLET PO SCH ×2 (09:21→21:26)
[2020-06-12] MEDS: MULTIVITAMIN (CENTRUM) TABLET PO SCH (09:21)
[2020-06-12] MEDS: hydrALAZINE 10 MG TABLET PO SCH ×2 (09:21→21:27)
[2020-06-12] MEDS: prednisoLONE ACETATE 1% OPH SUSP 5 ML BOTTLE LEFT EYE SCH ×2 (09:24→21:27)
[2020-06-12] MEDS: BRIMONIDINE 0.2% OPH SOLN 5 ML BOTTLE LEFT EYE SCH ×2 (09:25→21:26)
[2020-06-12] MEDS: TIMOLOL 0.5% OPH SOLN 5 ML BOTTLE LEFT EYE SCH ×2 (09:25→21:27)
[2020-06-12] MEDS ORDERED: cefOXitin 2,000 MG in SYRINGE 1 EACH IV ONE (10:30)
[2020-06-12] MEDS: SODIUM HYPOCHLORITE 0.25% IRRIG 473 ML BOTTLE TOP SCH (10:53)
[2020-06-12] MEDS ORDERED: TISSUE ADHESIVE 1 EACH APPLICATOR TOP ONE (11:56)
[2020-06-12] MEDS ORDERED: BUPIVACAINE MPF 0.25% 30 ML VIAL ONE (11:56)
[2020-06-12] MEDS ORDERED: LIDOCAINE 1%/EPI INJ 20 ML VIAL ONE (11:56)
[2020-06-12] MEDS ORDERED: LIDOCAINE 2% 5 ML VIAL ONE (12:05)
[2020-06-12] MEDS ORDERED: MIDAZOLAM 2 MG/2 ML VIAL ONE (12:06)
[2020-06-12] MEDS ORDERED: propofoL 200 MG/20 ML VIAL IV ONE (12:06)
[2020-06-12] MEDS ORDERED: ROCURONIUM 50 MG/5 ML VIAL IV ONE (12:06)
[2020-06-12] MEDS ORDERED: fentaNYL 100 MCG/2 ML VIAL ONE (12:07)
[2020-06-12] MEDS ORDERED: NEOSTIGMINE 10 MG/10 ML VIAL ONE (13:12)
[2020-06-12] MEDS ORDERED: GLYCOPYRROLATE 0.4 MG/2 ML VIAL ONE (13:12)
[2020-06-12] MEDS ORDERED: SEVOFLURANE 1 UNIT/15 MINUTE INH ONE (13:22)
[2020-06-12] MEDS ORDERED: HYDROmorphone 2 MG/1 ML VIAL ONE (13:49)
[2020-06-12] MEDS: HYDROmorphone 2 MG/1 ML VIAL IV PRN ×2 (13:50→14:00)
[2020-06-12] MEDS: GENTAMICIN 0.1% CREAM 15 GM TUBE TOP SCH (17:06)
[2020-06-13] MEDS ORDERED: SODIUM CHLORIDE 0.9% 100 ML IV ONE (01:47)
[2020-06-13] MEDS: CEFEPIME 1,000 MG in SODIUM CHLORIDE 0.9% 100 ML IV SCH ×2 (01:55→09:17)
[2020-06-13] MEDS: VANCOMYCIN INJ 1,500 MG in SODIUM CHLORIDE 0.9% 500 ML IV SCH (03:20)
[2020-06-13] MEDS: ONDANSETRON 4 MG/2 ML VIAL IV SCH ×2 (06:43→10:32)
[2020-06-13 07:49] LABS: Basophils # 0.1 10*3/uL (0.0-0.2); Basophils % 0.3 % (0.0-0.8); Eosinophils % 0.3 % (0.00-10.9); Hematocrit 27.8 VOL% (35.7-47.0); Hemoglobin 8.9 GM/DL (12.0-16.0); Immature Granulocytes % 4.6 %; Immature Granulocytes Absolute 0.72 #; Lymphocytes # 1.6 10*3/uL (1.4-4.0); Mean Corpuscular Volume 87.1 FL (87-102); Mean Platelet Volume 9.9 FL (9.6-12.0); Monocytes % 8.2 % (1.7-12.7); Neutrophils % 76.6 % (38.7-73.9); Platelet Count 381 T/CUMM (130-400); Red Blood Count 3.19 MC/CUMM (3.8-5.5); White Blood Count 15.6 T/CUMM (4-12)
[2020-06-13 08:10] LABS: Band Neutrophils 1 % (0-10); Hypochromasia 2+; Lymphocytes 7 % (20-55); Metamyelocytes 1 %; Myelocytes 1 %; Segmented Neutrophils 79 % (50-85); Total Cells Counted 100
[2020-06-13 08:11] LABS: Microcytosis 1+
[2020-06-13 08:12] LABS: Platelet Estimate Normal
[2020-06-13 08:15] LABS: Albumin 2.2 G/DL (3.4-5.0); Bilirubin,Total 0.8 MG/DL (0.2-1.0); Calcium 8.9 MG/DL (8.5-10.1); Osmolality,Calculated 267.4 MOS/KG (273-304); Total Protein 8.7 G/DL (6.4-8.3)
[2020-06-13] MEDS: MULTIVITAMIN (CENTRUM) TABLET PO SCH (09:17)
[2020-06-13] MEDS: FERROUS SULFATE 325 MG TABLET PO SCH (09:17)
[2020-06-13] MEDS: hydrALAZINE 10 MG TABLET PO SCH (09:17)
[2020-06-13] MEDS: SODIUM HYPOCHLORITE 0.25% IRRIG 473 ML BOTTLE TOP SCH (09:21)
[2020-06-13] MEDS: prednisoLONE ACETATE 1% OPH SUSP 5 ML BOTTLE LEFT EYE SCH (09:22)
[2020-06-13] MEDS: TIMOLOL 0.5% OPH SOLN 5 ML BOTTLE LEFT EYE SCH (09:22)
[2020-06-13] MEDS: BRIMONIDINE 0.2% OPH SOLN 5 ML BOTTLE LEFT EYE SCH (09:23)
[2020-06-13 09:42] LABS: Myeloperoxidase Antibody < 0.2 U
[2020-06-13 11:13] VITALS: BP 144/71
[2020-06-13 16:06] LABS: EBV Nuclear Ag Antibody Positive (Negative); EBV Virus IgG Ab Positive (Negative); EBV Virus IgM Ab Negative (Negative)
== END 2020-06-13 15:30 | disposition home health service (06) | DRG 854 ==
LOC: N.ED 09:43 → N.EDINP 13:37 → SUATTDRO 13:37 → N.3E 15:35
PROVIDERS: ADMIT Internal Medicine; ATTEND Internal Medicine
PROC: LAPCHOL (2020-06-12 13:50)

== ENCOUNTER 2020-09-26 06:04 | Inpatient (IN) ==
[2020-09-25 12:35] LABS: Basophils % 0.2 % (0.0-0.8); Eosinophils # 0.1 10*3/uL (0.0-0.87); Hematocrit 29.3 VOL% (35.7-47.0); Hemoglobin 8.6 GM/DL (12.0-16.0); Immature Granulocytes % 0.4 %; Immature Granulocytes Absolute 0.02 #; Lymphocytes # 1.5 10*3/uL (1.4-4.0); Lymphocytes % 31.4 % (21.3-54.2); Mean Corpuscular HGB Conc 29.4 GM/DL (32-36); Mean Platelet Volume 10.5 FL (9.6-12.0); Monocytes % 11.1 % (1.7-12.7); Neutrophils % 55.9 % (38.7-73.9); Platelet Count 330 T/CUMM (130-400); Red Blood Count 3.33 MC/CUMM (3.8-5.5); Red Cell Distribution Width 14.2 % (9.3-17.3); White Blood Count 4.9 T/CUMM (4-12)
[2020-09-25 13:02] LABS: Calcium 8.9 MG/DL (8.5-10.1); Osmolality,Calculated 278.2 MOS/KG (273-304)
[2020-09-25 13:03] LABS: Eosinophils 3 % (0-10); Hypochromasia 2+; Lymphocytes 32 % (20-55); Microcytosis 1+; Platelet Estimate Adequate; Segmented Neutrophils 54 % (50-85); Total Cells Counted 100
[2020-09-25 13:04] LABS: Atypical Lymphocytes Few
[2020-09-25 13:05] LABS: Potassium 6.6 MMOL/L (3.5-5.1)
[~2020-09-26 06:04] MED LIST: ceFAZolin 1,000 MG in SYRINGE 1 EACH IV ONE
[2020-09-26] MEDS ORDERED: BUPIVACAINE MPF 0.25% 30 ML VIAL ONE (06:20)
[2020-09-26] MEDS ORDERED: LACTATED RINGERS 1,000 ML IV SCH (06:30)
[2020-09-26] MEDS ORDERED: MIDAZOLAM 2 MG/2 ML VIAL ONE (07:06)
[2020-09-26] MEDS ORDERED: LIDOCAINE 2% 5 ML VIAL ONE (07:06)
[2020-09-26] MEDS ORDERED: fentaNYL 100 MCG/2 ML VIAL ONE (07:06)
[2020-09-26] MEDS ORDERED: propofoL 200 MG/20 ML VIAL IV ONE (07:06)
[2020-09-26] MEDS ORDERED: SODIUM CHLORIDE 0.9% 1,000 ML IV ONE (07:15)
[2020-09-26] MEDS ORDERED: BISACODYL 5 MG TABLET PO PRN (09:01)
[2020-09-26] MEDS ORDERED: DEXTROSE 50% 25 GM/50 ML VIAL IV PRN (09:01)
[2020-09-26] MEDS ORDERED: GLUCAGON 1 MG VIAL IM PRN (09:01)
[2020-09-26] MEDS ORDERED: ACETAMINOPHEN 325 MG TABLET PO PRN (09:01)
[2020-09-26] MEDS: PIPERACILLIN/TAZOBACTAM 3,375 MG in SODIUM CHLORIDE 0.9% 100 ML IV SCH ×2 (11:00→15:45)
[2020-09-26] MEDS: INSULIN LISPRO 100 UNIT/ML SUBCUT SCH ×2 (12:10→16:31)
[2020-09-26] MEDS ORDERED: VANCOMYCIN INJ 2,000 MG in SODIUM CHLORIDE 0.9% 500 ML IV ONE (15:00)
[2020-09-26] MEDS ORDERED: VANCOMYCIN INJ 1,500 MG in SODIUM CHLORIDE 0.9% 500 ML IV ONE (17:01)
[2020-09-26] MEDS: hydrALAZINE 10 MG TABLET PO SCH (20:29)
[2020-09-26] MEDS: INSULIN NPH/REGULAR 70/30 100 UNIT/ML SUBCUT SCH (20:30)
[2020-09-26] MEDS: BRIMONIDINE 0.2% OPH SOLN 5 ML BOTTLE LEFT EYE SCH (20:31)
[2020-09-26] MEDS: prednisoLONE ACETATE 1% OPH SUSP 5 ML BOTTLE LEFT EYE SCH (20:31)
[2020-09-26] MEDS: TIMOLOL 0.5% OPH SOLN 5 ML BOTTLE LEFT EYE SCH (20:32)
[2020-09-27] MEDS: PIPERACILLIN/TAZOBACTAM 3,375 MG in SODIUM CHLORIDE 0.9% 100 ML IV SCH ×3 (01:45→18:24)
[2020-09-27] MEDS ORDERED: VANCOMYCIN INJ 1,750 MG in SODIUM CHLORIDE 0.9% 500 ML IV SCH (03:00)
[2020-09-27 04:20] LABS: Basophils % 0.2 % (0.0-0.8); Eosinophils % 0.8 % (0.00-10.9); Hemoglobin 7.2 GM/DL (12.0-16.0); Immature Granulocytes % 0.2 %; Immature Granulocytes Absolute 0.01 #; Lymphocytes # 1.7 10*3/uL (1.4-4.0); Lymphocytes % 32.2 % (21.3-54.2); Mean Corpuscular HGB Conc 31.3 GM/DL (32-36); Mean Corpuscular Volume 85.5 FL (87-102); Mean Platelet Volume 10.5 FL (9.6-12.0); Neutrophils % 53.6 % (38.7-73.9); Platelet Count 229 T/CUMM (130-400); Red Blood Count 2.69 MC/CUMM (3.8-5.5); Red Cell Distribution Width 14.3 % (9.3-17.3); White Blood Count 5.2 T/CUMM (4-12)
[2020-09-27 04:39] LABS: Calcium 8.1 MG/DL (8.5-10.1); Osmolality,Calculated 283.7 MOS/KG (273-304); Potassium 5.1 MMOL/L (3.5-5.1)
[2020-09-27 04:43] LABS: Hypochromasia 2+; Microcytosis 1+; Platelet Estimate Adequate
[2020-09-27] MEDS ORDERED: SODIUM CHLORIDE 0.9% 1,000 ML IV PRN (08:44)
[2020-09-27] MEDS ORDERED: FUROSEMIDE 20 MG TABLET PO SCH (09:00)
[2020-09-27] MEDS: prednisoLONE ACETATE 1% OPH SUSP 5 ML BOTTLE LEFT EYE SCH ×2 (09:37→21:17)
[2020-09-27] MEDS: BRIMONIDINE 0.2% OPH SOLN 5 ML BOTTLE LEFT EYE SCH ×2 (09:38→21:17)
[2020-09-27] MEDS: TIMOLOL 0.5% OPH SOLN 5 ML BOTTLE LEFT EYE SCH ×2 (09:39→21:17)
[2020-09-27] MEDS: hydrALAZINE 10 MG TABLET PO SCH ×2 (10:53→21:14)
[2020-09-27] MEDS: INSULIN LISPRO 100 UNIT/ML SUBCUT SCH ×3 (10:58→17:03)
[2020-09-27] MEDS: INSULIN NPH/REGULAR 70/30 100 UNIT/ML SUBCUT SCH ×2 (11:20→19:28)
[2020-09-27] MEDS ORDERED: LIDOCAINE 2% 5 ML VIAL ONE (11:34)
[2020-09-27] MEDS ORDERED: MIDAZOLAM 2 MG/2 ML VIAL ONE (11:34)
[2020-09-27] MEDS ORDERED: SEVOFLURANE 1 UNIT/15 MINUTE INH ONE ×2 (11:34→12:31)
[2020-09-27] MEDS ORDERED: propofoL 200 MG/20 ML VIAL IV ONE (11:34)
[2020-09-27] MEDS ORDERED: fentaNYL 100 MCG/2 ML VIAL ONE (11:35)
[2020-09-27] MEDS ORDERED: DEXAMETHASONE 4 MG/1 ML VIAL ONE ×2 (11:44→12:26)
[2020-09-27] MEDS ORDERED: LIDOCAINE 1% 5 ML VIAL ONE (11:45)
[2020-09-27] MEDS ORDERED: ROPIVACAINE 0.5% 30 ML VIAL ONE (11:45)
[2020-09-27] MEDS ORDERED: PROMETHAZINE 25 MG/1 ML VIAL ONE (12:26)
[2020-09-27] MEDS ORDERED: KETOROLAC 30 MG/1 ML VIAL ONE (12:26)
[2020-09-27] MEDS ORDERED: PHENYLEPHRINE 1 MG/10 ML SYRINGE IV ONE (12:59)
[2020-09-27] MEDS ORDERED: hydrALAZINE 20 MG/1 ML VIAL ONE (13:16)
[2020-09-27] MEDS: HYDROmorphone 2 MG/1 ML VIAL IV PRN ×6 (13:20→21:14)
[2020-09-27] MEDS ORDERED: MEPERIDINE 25 MG/1 ML VIAL IV PRN (13:24)
[2020-09-27] MEDS ORDERED: diphenhydrAMINE 50 MG/1 ML VIAL IV PRN (13:24)
[2020-09-27] MEDS ORDERED: PROMETHAZINE INJ 25 MG in SODIUM CHLORIDE 0.9% 50 ML IV PRN (13:24)
[2020-09-27] MEDS ORDERED: hydrALAZINE 20 MG/1 ML VIAL IV ONE (13:25)
[2020-09-27 15:13] LABS: Hematocrit 30.4 VOL% (35.7-47.0); Hemoglobin 9.4 GM/DL (12.0-16.0)
[2020-09-27] MEDS ORDERED: VANCOMYCIN INJ 1,500 MG in SODIUM CHLORIDE 0.9% 500 ML IV SCH (23:00)
[2020-09-28] MEDS: HYDROmorphone 2 MG/1 ML VIAL IV PRN ×4 (00:10→20:34)
[2020-09-28] MEDS: PIPERACILLIN/TAZOBACTAM 3,375 MG in SODIUM CHLORIDE 0.9% 100 ML IV SCH ×3 (02:18→16:46)
[2020-09-28 06:08] LABS: Hemoglobin 9.5 GM/DL (12.0-16.0); Immature Granulocytes % 0.6 %; Immature Granulocytes Absolute 0.07 #; Lymphocytes # 0.8 10*3/uL (1.4-4.0); Lymphocytes % 6.7 % (21.3-54.2); Mean Corpuscular HGB Conc 30.6 GM/DL (32-36); Mean Corpuscular Volume 88.3 FL (87-102); Mean Platelet Volume 10.5 FL (9.6-12.0); Monocytes % 6.9 % (1.7-12.7); Neutrophils % 85.8 % (38.7-73.9); Platelet Count 263 T/CUMM (130-400); Red Blood Count 3.51 MC/CUMM (3.8-5.5); Red Cell Distribution Width 13.8 % (9.3-17.3); White Blood Count 11.1 T/CUMM (4-12)
[2020-09-28 06:35] LABS: Calcium 8.6 MG/DL (8.5-10.1); Osmolality,Calculated 278.2 MOS/KG (273-304); Potassium 5.6 MMOL/L (3.5-5.1)
[2020-09-28] MEDS ORDERED: MAGNESIUM SULF RIDER 4 GM in PREMIX 1 EACH IV PRN (08:40)
[2020-09-28] MEDS ORDERED: MAGNESIUM SULF RIDER 2 GM in PREMIX 1 EACH IV PRN (08:40)
[2020-09-28] MEDS: INSULIN LISPRO 100 UNIT/ML SUBCUT SCH ×3 (09:15→17:16)
[2020-09-28] MEDS: BRIMONIDINE 0.2% OPH SOLN 5 ML BOTTLE LEFT EYE SCH ×2 (09:15→20:36)
[2020-09-28] MEDS: INSULIN NPH/REGULAR 70/30 100 UNIT/ML SUBCUT SCH ×2 (09:16→18:04)
[2020-09-28] MEDS: TIMOLOL 0.5% OPH SOLN 5 ML BOTTLE LEFT EYE SCH ×2 (09:16→20:36)
[2020-09-28] MEDS: prednisoLONE ACETATE 1% OPH SUSP 5 ML BOTTLE LEFT EYE SCH ×2 (09:16→20:36)
[2020-09-28] MEDS: hydrALAZINE 10 MG TABLET PO SCH ×2 (09:16→20:35)
[2020-09-28] MEDS: SODIUM CHLORIDE 0.9% 1,000 ML IV SCH ×2 (13:24→20:34)
[2020-09-28] MEDS: SODIUM ZIRCONIUM CYCLOSILICATE 10 GM PACK PO SCH (16:46)
[2020-09-29] MEDS: SODIUM CHLORIDE 0.9% 1,000 ML IV SCH ×4 (02:20→21:57)
[2020-09-29] MEDS: PIPERACILLIN/TAZOBACTAM 3,375 MG in SODIUM CHLORIDE 0.9% 100 ML IV SCH ×3 (02:20→17:20)
[2020-09-29] MEDS: HYDROmorphone 2 MG/1 ML VIAL IV PRN ×6 (02:29→23:45)
[2020-09-29 05:52] LABS: Basophils % 0.2 % (0.0-0.8); Eosinophils % 0.1 % (0.00-10.9); Hematocrit 27.9 VOL% (35.7-47.0); Hemoglobin 8.4 GM/DL (12.0-16.0); Immature Granulocytes % 1.3 %; Immature Granulocytes Absolute 0.14 #; Lymphocytes % 19.6 % (21.3-54.2); Mean Corpuscular HGB Conc 30.1 GM/DL (32-36); Mean Corpuscular Volume 88.6 FL (87-102); Mean Platelet Volume 10.6 FL (9.6-12.0); Monocytes % 11.3 % (1.7-12.7); Neutrophils % 67.5 % (38.7-73.9); Platelet Count 233 T/CUMM (130-400); Red Blood Count 3.15 MC/CUMM (3.8-5.5); Red Cell Distribution Width 13.8 % (9.3-17.3); White Blood Count 10.4 T/CUMM (4-12)
[2020-09-29 06:11] LABS: Platelet Estimate Normal
[2020-09-29 06:12] LABS: Anisocytosis 1+
[2020-09-29 06:39] LABS: Calcium 8.5 MG/DL (8.5-10.1); Potassium 5.1 MMOL/L (3.5-5.1)
[2020-09-29] MEDS: INSULIN LISPRO 100 UNIT/ML SUBCUT SCH ×3 (08:19→16:59)
[2020-09-29] MEDS: INSULIN NPH/REGULAR 70/30 100 UNIT/ML SUBCUT SCH ×2 (09:00→18:48)
[2020-09-29] MEDS: hydrALAZINE 10 MG TABLET PO SCH ×2 (09:01→21:38)
[2020-09-29] MEDS: TIMOLOL 0.5% OPH SOLN 5 ML BOTTLE LEFT EYE SCH ×2 (09:33→21:38)
[2020-09-29] MEDS: prednisoLONE ACETATE 1% OPH SUSP 5 ML BOTTLE LEFT EYE SCH ×2 (09:33→21:38)
[2020-09-29] MEDS: BRIMONIDINE 0.2% OPH SOLN 5 ML BOTTLE LEFT EYE SCH ×2 (09:33→21:38)
[2020-09-30] MEDS: PIPERACILLIN/TAZOBACTAM 3,375 MG in SODIUM CHLORIDE 0.9% 100 ML IV SCH ×3 (01:27→17:28)
[2020-09-30] MEDS: HYDROmorphone 2 MG/1 ML VIAL IV PRN ×3 (05:12→20:39)
[2020-09-30] MEDS: SODIUM CHLORIDE 0.9% 1,000 ML IV SCH ×3 (06:15→20:39)
[2020-09-30] MEDS: INSULIN LISPRO 100 UNIT/ML SUBCUT SCH ×3 (07:28→17:16)
[2020-09-30] MEDS: BRIMONIDINE 0.2% OPH SOLN 5 ML BOTTLE LEFT EYE SCH ×2 (09:09→20:40)
[2020-09-30] MEDS: hydrALAZINE 10 MG TABLET PO SCH ×2 (09:09→20:40)
[2020-09-30] MEDS: prednisoLONE ACETATE 1% OPH SUSP 5 ML BOTTLE LEFT EYE SCH ×2 (09:10→20:40)
[2020-09-30] MEDS: TIMOLOL 0.5% OPH SOLN 5 ML BOTTLE LEFT EYE SCH ×2 (09:10→20:40)
[2020-09-30] MEDS: INSULIN NPH/REGULAR 70/30 100 UNIT/ML SUBCUT SCH ×2 (09:29→19:22)
[2020-10-01] MEDS: PIPERACILLIN/TAZOBACTAM 3,375 MG in SODIUM CHLORIDE 0.9% 100 ML IV SCH ×3 (01:28→17:38)
[2020-10-01] MEDS: HYDROmorphone 2 MG/1 ML VIAL IV PRN ×2 (02:42→14:45)
[2020-10-01] MEDS: SODIUM CHLORIDE 0.9% 1,000 ML IV SCH ×3 (04:04→20:57)
[2020-10-01] MEDS: INSULIN LISPRO 100 UNIT/ML SUBCUT SCH ×3 (09:35→17:38)
[2020-10-01] MEDS: prednisoLONE ACETATE 1% OPH SUSP 5 ML BOTTLE LEFT EYE SCH ×2 (09:37→20:57)
[2020-10-01] MEDS: BRIMONIDINE 0.2% OPH SOLN 5 ML BOTTLE LEFT EYE SCH ×2 (09:37→20:57)
[2020-10-01] MEDS: TIMOLOL 0.5% OPH SOLN 5 ML BOTTLE LEFT EYE SCH ×2 (09:37→20:57)
[2020-10-01] MEDS: hydrALAZINE 10 MG TABLET PO SCH ×2 (09:38→20:56)
[2020-10-01] MEDS: INSULIN NPH/REGULAR 70/30 100 UNIT/ML SUBCUT SCH ×2 (09:40→19:03)
[2020-10-02] MEDS: PIPERACILLIN/TAZOBACTAM 3,375 MG in SODIUM CHLORIDE 0.9% 100 ML IV SCH ×2 (01:31→09:06)
[2020-10-02] MEDS: SODIUM CHLORIDE 0.9% 1,000 ML IV SCH ×2 (01:31→06:52)
[2020-10-02] MEDS: HYDROmorphone 2 MG/1 ML VIAL IV PRN (01:37)
[2020-10-02] MEDS: INSULIN LISPRO 100 UNIT/ML SUBCUT SCH ×2 (08:56→11:23)
[2020-10-02] MEDS: TIMOLOL 0.5% OPH SOLN 5 ML BOTTLE LEFT EYE SCH (09:02)
[2020-10-02] MEDS: hydrALAZINE 10 MG TABLET PO SCH (09:02)
[2020-10-02] MEDS: BRIMONIDINE 0.2% OPH SOLN 5 ML BOTTLE LEFT EYE SCH (09:02)
[2020-10-02] MEDS: prednisoLONE ACETATE 1% OPH SUSP 5 ML BOTTLE LEFT EYE SCH (09:02)
[2020-10-02] MEDS: INSULIN NPH/REGULAR 70/30 100 UNIT/ML SUBCUT SCH (09:07)
[2020-10-02 11:20] VITALS: BP 142/89
[2020-10-02] MEDS: SODIUM ZIRCONIUM CYCLOSILICATE 10 GM PACK PO SCH (17:15)
== END 2020-10-02 17:00 | disposition home health service (06) | DRG 240 ==
LOC: N.OR 06:04 → N.SDSINP 06:06 → N.2E 08:54 → N.3E 09-29 11:27
PROVIDERS: ADMIT Surgery; ATTEND Surgery

== ENCOUNTER 2021-11-25 05:25 | Inpatient (IN) ==
[2021-11-25] MEDS ORDERED: SODIUM CHLORIDE 0.9% 1,000 ML IV STA ×2 (06:23→09:48)
[2021-11-25] MEDS ORDERED: KETOROLAC 30 MG/1 ML VIAL IV STA (06:23)
[2021-11-25] MEDS ORDERED: PROMETHAZINE INJ 12.5 MG in SODIUM CHLORIDE 0.9% 50 ML IV STA (06:23)
[2021-11-25] MEDS ORDERED: METOPROLOL TARTRATE 5 MG/5 ML VIAL IV STA (06:23)
[2021-11-25 06:26] LABS: Basophils % 0.2 % (0.0-0.8); Eosinophils % 0.4 % (0.00-10.9); Hemoglobin 9.2 GM/DL (12.0-16.0); Immature Granulocytes % 0.6 %; Immature Granulocytes Absolute 0.05 #; Lymphocytes % 11.5 % (21.3-54.2); Mean Corpuscular HGB Conc 30.7 GM/DL (32-36); Mean Corpuscular Volume 87.5 FL (87-102); Mean Platelet Volume 11.8 FL (9.6-12.0); Monocytes # 0.7 10*3/uL (0.11-0.8); Monocytes % 8.5 % (1.7-12.7); Neutrophils % 78.8 % (38.7-73.9); Platelet Count 224 T/CUMM (130-400); Red Blood Count 3.43 MC/CUMM (3.8-5.5); Red Cell Distribution Width 13.2 % (9.3-17.3); White Blood Count 8.3 T/CUMM (4-12)
[2021-11-25] MEDS ORDERED: PROMETHAZINE 25 MG/1 ML VIAL ONE (06:28)
[2021-11-25] MEDS ORDERED: cefTRIAXone 1,000 MG in SODIUM CHLORIDE 0.9% 100 ML IV STA (08:54)
[2021-11-25] MEDS ORDERED: MORPHINE 2 MG/1 ML SYRINGE IV STA (08:54)
[2021-11-25] MEDS ORDERED: TAMSULOSIN 0.4 MG CAPSULE PO STA ×2 (08:54→09:06)
[2021-11-25 09:20] LABS: Calcium 8.2 MG/DL (8.5-10.1); Osmolality,Calculated 284.2 MOS/KG (273-304)
[2021-11-25 09:22] LABS: Potassium 6.5 MMOL/L (3.5-5.1)
[2021-11-25] MEDS ORDERED: INSULIN REGULAR 100 UNIT/ML IV STA (09:48)
[2021-11-25] MEDS ORDERED: SODIUM BICARBONATE 50 MEQ/50 ML VIAL IV STA (09:48)
[2021-11-25] MEDS ORDERED: CALCIUM CHLORIDE 1,000 MG/10 ML SYRINGE IV STA (09:48)
[2021-11-25] MEDS ORDERED: DEXTROSE 50% 25 GM/50 ML VIAL IV STA (09:48)
[2021-11-25] MEDS ORDERED: GLUCAGON 1 MG VIAL IM PRN ×2 (10:03)
[2021-11-25] MEDS ORDERED: ACETAMINOPHEN 325 MG TABLET PO PRN (10:03)
[2021-11-25] MEDS ORDERED: DEXTROSE 50% 25 GM/50 ML VIAL IV PRN (10:03)
[2021-11-25] MEDS ORDERED: PROMETHAZINE 25 MG/1 ML VIAL IM PRN (10:03)
[2021-11-25] MEDS ORDERED: MORPHINE 2 MG/1 ML SYRINGE IV PRN (10:03)
[2021-11-25] MEDS ORDERED: hydrALAZINE 20 MG/1 ML VIAL IV PRN (10:03)
[2021-11-25] MEDS: HYDROmorphone 1 MG/1 ML SYRINGE IV PRN ×2 (10:30→21:18)
[2021-11-25 10:31] LABS: Albumin 3.7 G/DL (3.4-5.0); Bilirubin,Direct 0.11 MG/DL (0.0-0.20); Bilirubin,Indirect 0.3 MG/DL (0.0-1.0); Bilirubin,Total 0.4 MG/DL (0.20-1.00); Total Protein 8.3 G/DL (6.4-8.2)
[2021-11-25 10:37] LABS: % Iron Saturation 9.9 % (18-50); Ferritin 501.1 ng/mL (8-252)
[2021-11-25] MEDS ORDERED: DEXTROSE 50% 25 GM/50 ML SYRINGE IV ONE (10:50)
[2021-11-25] MEDS ORDERED: DEXTROSE 10% 250 ML BAG IV PRN (11:00)
[2021-11-25 11:13] LABS: Folate 9.92 NG/ML (5.38-24.0)
[2021-11-25] MEDS: SODIUM CHLORIDE 0.9% 1,000 ML IV SCH ×2 (12:02→21:25)
[2021-11-25] MEDS: HEPARIN 5,000 UNIT/1 ML VIAL SUBCUT SCH ×2 (12:55→23:43)
[2021-11-25] MEDS: INSULIN REGULAR 100 UNIT/ML SUBCUT SCH ×3 (12:56→21:21)
[2021-11-25] MEDS: INSULIN NPH/REGULAR 70/30 100 UNIT/ML SUBCUT SCH (21:18)
[2021-11-26 00:36] LABS: Bacteria,Urine Few /HPF (Few); Mucus,Urine Occasional /LPF (Occasional); RBC,Urine 2 /HPF (0-4); Squamous Epithelial Cell,Urine Occasional /HPF (0-10)
[2021-11-26 00:38] LABS: Bilirubin,Urine Negative (Negative); Glucose,Urine (UA) 100 mg/dL (Negative); Ketones,Urine Negative (Negative); Nitrite,Urine Negative (Negative); Protein,Urine 30 mg/dL (Negative); Urine Appearance Clear (Clear); Urine Color Yellow (Yellow)
[2021-11-26 00:39] LABS: Blood, Urine Negative (Negative); Urine Urobilinogen 0.2 eU/dL (<2.0)
[2021-11-26] MEDS: SODIUM CHLORIDE 0.9% 1,000 ML IV SCH ×3 (04:22→23:41)
[2021-11-26 06:07] LABS: Basophils % 0.4 % (0.0-0.8); Eosinophils # 0.1 10*3/uL (0.0-0.87); Eosinophils % 1.3 % (0.00-10.9); Hematocrit 24.8 VOL% (35.7-47.0); Hemoglobin 7.6 GM/DL (12.0-16.0); Immature Granulocytes % 0.4 %; Immature Granulocytes Absolute 0.02 #; Lymphocytes # 1.8 10*3/uL (1.4-4.0); Lymphocytes % 32.8 % (21.3-54.2); Mean Corpuscular HGB Conc 30.6 GM/DL (32-36); Mean Corpuscular Volume 87.3 FL (87-102); Mean Platelet Volume 12.1 FL (9.6-12.0); Monocytes # 0.7 10*3/uL (0.11-0.8); Monocytes % 13.6 % (1.7-12.7); Neutrophils % 51.5 % (38.7-73.9); Platelet Count 204 T/CUMM (130-400); Red Blood Count 2.84 MC/CUMM (3.8-5.5); Red Cell Distribution Width 13.2 % (9.3-17.3); White Blood Count 5.5 T/CUMM (4-12)
[2021-11-26 06:41] LABS: Alanine Aminotransferase 35 U/L (13-56); Albumin 3.1 G/DL (3.4-5.0); Alkaline Phosphatase 41 U/L (45-117); Aspartate Amino Transferase 34 U/L (0-37); Bilirubin,Total < 0.39 MG/DL (0.20-1.00); Blood Urea Nitrogen 36 MG/DL (7-18); Calcium 8.2 MG/DL (8.5-10.1); Carbon Dioxide 21 MMOL/L (21-32); Chloride 111 MMOL/L (98-107); Cholesterol 185 MG/DL (50-200); Glucose 70 MG/DL (74-106); HDL Cholesterol 38 MG/DL (40-60); Osmolality,Calculated 282.5 MOS/KG (273-304); Potassium 4.7 MMOL/L (3.5-5.1); Risk Ratio 4.87; Sodium 139 MMOL/L (136-145); Total Protein 7.4 G/DL (6.4-8.2); Triglycerides 353 MG/DL (2-150); VLDL Cholesterol 70.6 MG/DL
[2021-11-26] MEDS: INSULIN REGULAR 100 UNIT/ML SUBCUT SCH ×4 (07:50→21:46)
[2021-11-26] MEDS: TAMSULOSIN 0.4 MG CAPSULE PO SCH (08:33)
[2021-11-26] MEDS: PANTOPRAZOLE 40 MG TABLET PO SCH (08:33)
[2021-11-26] MEDS: cefTRIAXone 1,000 MG in SODIUM CHLORIDE 0.9% 100 ML IV SCH (08:33)
[2021-11-26] MEDS: FERROUS SULFATE 325 MG TABLET PO SCH ×2 (08:33→21:45)
[2021-11-26] MEDS ORDERED: MAGNESIUM SULF RIDER 4 GM/100 ML PREMIX IV ONE (09:00)
[2021-11-26] MEDS ORDERED: INSULIN NPH/REGULAR 70/30 100 UNIT/ML SUBCUT SCH (09:00)
[2021-11-26] MEDS ORDERED: MAGNESIUM CITRATE 300 ML BOTTLE PO ONE (11:00)
[2021-11-26] MEDS ORDERED: METOCLOPRAMIDE 10 MG/2 ML VIAL IV PRN (12:06)
[2021-11-26] MEDS: HEPARIN 5,000 UNIT/1 ML VIAL SUBCUT SCH ×2 (13:20→23:41)
[2021-11-26] MEDS ORDERED: fentaNYL 100 MCG/2 ML VIAL ONE (15:56)
[2021-11-26] MEDS ORDERED: SUCCINYLCHOLINE 200 MG/10 ML VIAL ONE (16:32)
[2021-11-26] MEDS ORDERED: LIDOCAINE 2% 5 ML VIAL ONE (16:32)
[2021-11-26] MEDS ORDERED: ONDANSETRON 4 MG/2 ML VIAL ONE (16:32)
[2021-11-26] MEDS ORDERED: propofoL 200 MG/20 ML VIAL IV ONE (16:32)
[2021-11-26] MEDS ORDERED: SEVOFLURANE 1 UNIT/15 MINUTE INH ONE (16:32)
[2021-11-26] MEDS ORDERED: DEXAMETHASONE 4 MG/1 ML VIAL ONE (16:32)
[2021-11-26] MEDS ORDERED: PHENYLEPHRINE 1 MG/10 ML SYRINGE IV ONE (16:32)
[2021-11-26 17:15] LABS: Glucose,Urine (UA) Negative (Negative); Ketones,Urine Negative (Negative); Mucus,Urine Occasional /LPF (Occasional); Nitrite,Urine Negative (Negative); Protein,Urine 30 mg/dL (Negative); RBC,Urine 256 /HPF (0-4); Squamous Epithelial Cell,Urine Occasional /HPF (0-10); Urine Appearance Clear (Clear); Urine Color Light Yellow (Yellow); Urine Specific Gravity 1.015 (1.001-1.035)
[2021-11-26 17:16] LABS: Bilirubin,Urine Negative (Negative); Blood, Urine Large mg/dL (Negative); Urine Urobilinogen 0.2 eU/dL (<2.0)
[2021-11-26] MEDS: INSULIN NPH/REGULAR 70/30 100 UNIT/ML SUBCUT SCH (21:45)
[2021-11-27 05:05] LABS: Basophils % 0.1 % (0.0-0.8); Immature Granulocytes % 0.6 %; Immature Granulocytes Absolute 0.04 #; Lymphocytes # 0.6 10*3/uL (1.4-4.0); Mean Corpuscular HGB Conc 30.8 GM/DL (32-36); Mean Corpuscular Volume 86.4 FL (87-102); Mean Platelet Volume 11.6 FL (9.6-12.0); Monocytes # 0.2 10*3/uL (0.11-0.8); Monocytes % 2.8 % (1.7-12.7); Neutrophils % 88.5 % (38.7-73.9); Platelet Count 206 T/CUMM (130-400); Red Blood Count 3.01 MC/CUMM (3.8-5.5); Red Cell Distribution Width 12.9 % (9.3-17.3); White Blood Count 7.1 T/CUMM (4-12)
[2021-11-27 05:24] LABS: Calcium 8.7 MG/DL (8.5-10.1); Potassium 5.9 MMOL/L (3.5-5.1)
[2021-11-27] MEDS ORDERED: INSULIN REGULAR 10 UNIT, CALCIUM GLUCONATE 1,000 MG in DEXTROSE 10% 250 ML IV ONE (08:30)
[2021-11-27] MEDS: TAMSULOSIN 0.4 MG CAPSULE PO SCH (08:50)
[2021-11-27] MEDS: INSULIN REGULAR 100 UNIT/ML SUBCUT SCH ×4 (08:51→22:48)
[2021-11-27] MEDS: FERROUS SULFATE 325 MG TABLET PO SCH ×2 (08:51→21:41)
[2021-11-27] MEDS: PANTOPRAZOLE 40 MG TABLET PO SCH (08:51)
[2021-11-27] MEDS: SODIUM CHLORIDE 0.9% 1,000 ML IV SCH (08:52)
[2021-11-27] MEDS: INSULIN NPH/REGULAR 70/30 100 UNIT/ML SUBCUT SCH ×3 (08:52→16:00)
[2021-11-27] MEDS: cefTRIAXone 1,000 MG in SODIUM CHLORIDE 0.9% 100 ML IV SCH (08:52)
[2021-11-27] MEDS: SODIUM BICARB INJ 50 MEQ in SODIUM CHLORIDE 0.45% 1,000 ML IV SCH ×2 (10:25→19:40)
[2021-11-27 11:15] LABS: Calcium 8.8 MG/DL (8.5-10.1); Osmolality,Calculated 287.7 MOS/KG (273-304); Potassium 5.7 MMOL/L (3.5-5.1)
[2021-11-27] MEDS: HEPARIN 5,000 UNIT/1 ML VIAL SUBCUT SCH ×2 (11:34→22:49)
[2021-11-27] MEDS: SODIUM ZIRCONIUM CYCLOSILICATE 10 GM PACK PO SCH ×2 (15:51→21:42)
[2021-11-27] MEDS: prednisoLONE ACETATE 1% OPH SUSP 5 ML BOTTLE LEFT EYE SCH (21:40)
[2021-11-27] MEDS: BRIMONIDINE/TIMOLOL OPH SOLN 5 ML BOTTLE LEFT EYE SCH (21:40)
[2021-11-28] MEDS: SODIUM BICARB INJ 50 MEQ in SODIUM CHLORIDE 0.45% 1,000 ML IV SCH ×2 (05:22→11:41)
[2021-11-28 05:39] LABS: Basophils % 0.2 % (0.0-0.8); Hematocrit 24.2 VOL% (35.7-47.0); Hemoglobin 7.6 GM/DL (12.0-16.0); Immature Granulocytes % 0.5 %; Immature Granulocytes Absolute 0.03 #; Lymphocytes # 1.9 10*3/uL (1.4-4.0); Mean Corpuscular HGB Conc 31.4 GM/DL (32-36); Mean Corpuscular Volume 86.7 FL (87-102); Monocytes # 0.8 10*3/uL (0.11-0.8); Monocytes % 11.8 % (1.7-12.7); Neutrophils % 59.5 % (38.7-73.9); Platelet Count 226 T/CUMM (130-400); Red Blood Count 2.79 MC/CUMM (3.8-5.5); Red Cell Distribution Width 13.2 % (9.3-17.3); White Blood Count 6.6 T/CUMM (4-12)
[2021-11-28 05:54] LABS: Calcium 8.4 MG/DL (8.5-10.1); Osmolality,Calculated 284.4 MOS/KG (273-304); Potassium 5.3 MMOL/L (3.5-5.1)
[2021-11-28] MEDS: INSULIN REGULAR 100 UNIT/ML SUBCUT SCH (07:00)
[2021-11-28 08:23] VITALS: BP 148/76
[2021-11-28] MEDS: cefTRIAXone 1,000 MG in SODIUM CHLORIDE 0.9% 100 ML IV SCH (09:34)
[2021-11-28] MEDS: BRIMONIDINE/TIMOLOL OPH SOLN 5 ML BOTTLE LEFT EYE SCH (09:35)
[2021-11-28] MEDS: PANTOPRAZOLE 40 MG TABLET PO SCH (09:35)
[2021-11-28] MEDS: SODIUM ZIRCONIUM CYCLOSILICATE 10 GM PACK PO SCH (09:35)
[2021-11-28] MEDS: TAMSULOSIN 0.4 MG CAPSULE PO SCH (09:35)
[2021-11-28] MEDS: prednisoLONE ACETATE 1% OPH SUSP 5 ML BOTTLE LEFT EYE SCH (09:35)
[2021-11-28] MEDS: FERROUS SULFATE 325 MG TABLET PO SCH (09:35)
[2021-11-28] MEDS: INSULIN NPH/REGULAR 70/30 100 UNIT/ML SUBCUT SCH (09:59)
[2021-11-28] MEDS ORDERED: MAGNESIUM SULF RIDER 2 GM/50 ML PREMIX IV ONE (10:30)
[2021-11-28] MEDS: HEPARIN 5,000 UNIT/1 ML VIAL SUBCUT SCH (11:42)
== END 2021-11-28 11:28 | disposition home or self-care (01) | DRG 660 ==
LOC: N.ED 05:25 → N.EDINP 10:04 → SUATTDRO 10:04 → N.3E 11:29
PROVIDERS: ADMIT Internal Medicine; ATTEND Internal Medicine